=== PATIENT | male | born 1965 | race Caucasian/White ===

== ENCOUNTER 2016-09-14 13:18 | Emergency (ER) | payer SELFPAY ==
[~2016-09-14] VITALS: Ht 180.3 cm; Wt 87.0 kg
[~2016-09-14 13:18] MED LIST: CYCL-36 PO; GABA300C3 PO; PRED20 PO; VENTAER INH; ZITH250T PO
[2016-09-14 13:20] VITALS: BP 158/83; PULSE 86; RESP 16; TEMP 97.7; O2SAT 98
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
[2016-09-14] MEDS ORDERED: SODIUM CHLOR 0.9% 1000 ML INJ 1,000 ML IV SCH (14:20)
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
[2016-09-14] MEDS ORDERED: SODIUM CHLORIDE 0.9% FLUSH 10 ML FLUSH IV FLUSH PRN (14:30)
[2016-09-14] MEDS ORDERED: LIDOCAINE HCL 1% 50 ML VIAL INFIL ONE (14:30)
[2016-09-14] MEDS ORDERED: TETANUS/DIPHTHERIA TOXOID ADULT 0.5 ML VIAL IM ONE (14:30)
[2016-09-14 14:43] VITALS: BP 171/85; PULSE 75; RESP 20; TEMP 99; O2SAT 97
[2016-09-14 15:08] LABS: AUTOMATED NEUTROPHIL # 7.6 TH/MM3 (1.8-7.7); BASOPHIL % 0.5 % (0.0-2.0); EOSINOPHIL # 0.1 TH/MM3 (0-0.4); EOSINOPHIL % 0.5 % (0.0-4.0); HEMO FLAGS DIFF FINAL; LYMPH % 17.3 % (9.0-44.0); LYMPHOCYTE # 1.8 TH/MM3 (1.0-4.8); MEAN CELL VOLUME 93.9 FL (80.0-100.0); MEAN CORPUSCULAR HEMOGLOBIN 33.1 PG (27.0-34.0); MEAN CORPUSCULAR HGB CONC 35.3 % (32.0-36.0); MONO % 7.9 % (0.0-8.0); NEUT % 73.8 % (16.0-70.0); PLATELET COUNT 265 TH/MM3 (150-450); RED BLOOD COUNT 4.47 MIL/MM3 (4.50-5.90); WHITE BLOOD COUNT 10.3 TH/MM3 (4.0-11.0)
--- NOTE | 2016-09-14 15:16 | RADRPT ---
EXAM DATE/TIME: 09/14/2016 14:56 [facility] COMPARISON: No previous studies available for comparison. INDICATIONS : Syncope, fall on right side of face RADIATION DOSE: 56.33 CTDIvol (mGy) MEDICAL HISTORY : Cardiovascular disease. Compression fx in neck. SURGICAL HISTORY : None. Lumbar surgery ENCOUNTER: Initial ACUITY: 2 days PAIN SCALE: 8/10 LOCATION: Right eye TECHNIQUE: Multiple contiguous axial images were obtained of the head. Using automated exposure control and adj ustment of the mA and/or kV according to patient size, radiation dose was kept as low as reasonably a chievable to obtain optimal diagnostic quality images. FINDINGS: CEREBRUM: The ventricles are normal for age. No evidence of midline shift, mass lesion, hemorrhage or acute in farction. No extra-axial fluid collections are seen. POSTERIOR FOSSA: The cerebellum and brainstem are intact. The 4th ventricle is midline. The cerebellopontine angle i s unremarkable. EXTRACRANIAL: The visualized portion of the orbits is intact. SKULL: The calvaria is intact. No evidence of skull fracture. CONCLUSION: No acute intracranial disease. Jordan Blackwell MD on September 14, 2016 at 15:13 Board Certified Radiologist. This report was verified electronically.
--- NOTE | 2016-09-14 15:19 | RADRPT ---
EXAM DATE/TIME: 09/14/2016 15:00 [facility] COMPARISON: No previous studies available for comparison. INDICATIONS : Syncope. Fall, swelling right eye RADIATION DOSE: 21.96 CTDIvol (mGy) MEDICAL HISTORY : Cardiovascular disease. Compression fx in neck. SURGICAL HISTORY : None. ENCOUNTER: Initial ACUITY: 1 day PAIN SCORE: 3/10 LOCATION: Bilateral face TECHNIQUE: Volumetric scanning of the facial bones was performed. Using automated exposure control and adjustme nt of the mA and/or kV according to patient size, radiation dose was kept as low as reasonably achiev able to obtain optimal diagnostic quality images. FINDINGS: ORBITS: The orbital and infraorbital osseous structures are intact. The retroconal structures have a normal configuration. No radiopaque foreign bodies are seen. NASAL BONE: The nasal bone and maxillary spine are intact ZYGOMATIC ARCHES: Symmetric without evidence of fracture. SINUSES: The maxillary, ethmoid and frontal sinuses are intact. No air-fluid levels seen. NASAL CAVITY: The nasal septum is intact and midline. The lacrimal ducts are intact. SOFT TISSUES: No radiopaque foreign bodies seen. Right-sided facial soft-tissue swelling is seen. INTRACRANIAL: No intracranial air seen. CRIBIFORM PLATE: Grossly intact. CONCLUSION: 1. Right facial soft tissue swelling. 2. No facial fracture seen. Jordan Blackwell MD on September 14, 2016 at 15:17 Board Certified Radiologist. This report was verified electronically.
[2016-09-14 15:29] LABS: ANION GAP 8 MEQ/L (5-15); BICARBONATE 26.1 MEQ/L (21.0-32.0); BLOOD UREA NITROGEN 15 MG/DL (7-18); CHLORIDE 104 MEQ/L (98-107); GLOMERULAR FILTRATION RATE 93 ML/MIN (>89); POTASSIUM 3.7 MEQ/L (3.5-5.1); SODIUM (NA) 138 MEQ/L (136-145)
--- NOTE | 2016-09-14 15:59 | RADRPT ---
EXAM DATE/TIME: 09/14/2016 15:00 [facility] COMPARISON: No previous studies available for comparison. INDICATIONS : Syncope, fall. Prior history of cervical compression fracture RADIATION DOSE: 19.78 CTDIvol (mGy) MEDICAL HISTORY : Cardiovascular disease. Compression fx in neck. SURGICAL HISTORY : None. ENCOUNTER: Initial ACUITY: 1 day PAIN SCALE: 3/10 LOCATION: Bilateral neck region. TECHNIQUE: Volumetric scanning of the cervical spine was performed. Multiplanar reconstructions in the sagittal, coronal and oblique axial planes were performed. Using automated exposure control and adjustment o f the mA and/or kV according to patient size, radiation dose was kept as low as reasonably achievable to obtain optimal diagnostic quality images. FINDINGS: VERTEBRAE: Normal vertebral body height. Degenerative changes are seen at C4-5, C5-6 and C6-7 levels. ALIGNMENT: Minimal retrolisthesis C4 on C5 otherwise normal alignment. C2-C3: The bony spinal canal is normal in size. No evidence of disc bulge or herniation. The neural forami na are bilaterally patent. C3-C4: The bony spinal canal is normal in size. No evidence of disc bulge or herniation. The neural forami na are bilaterally patent. C4-C5: Small generalized posterior disc osteophyte complex without canal stenosis. Mild neural frontal narro wing bilaterally. C5-C6: The bony spinal canal is normal in size. No evidence of disc bulge or herniation. The neural forami na are bilaterally patent. C6-C7: Small generalized posterior disc osteophyte complex without canal stenosis. Mild neural frontal narro wing bilaterally. C7-T1: The bony spinal canal is normal in size. No evidence of disc bulge or herniation. The neural forami na are bilaterally patent. CONCLUSION: 1. Degenerative changes without fracture. 2. Degenerative retrolisthesis C4 and C5. 3. Emphysema and parenchymal densities in the left apex. Followup CT chest on a nonemergent basis in 6 months recommended for stability. Jordan Blackwell MD on September 14, 2016 at 15:51 Board Certified Radiologist. This report was verified electronically.
[2016-09-14] MEDS ORDERED: NAPR500T PO (16:17)
[2016-09-14] MEDS ORDERED: BACT800T5 PO (16:17)
[2016-09-14] MEDS ORDERED: CYCL1TAB29 PO (16:17)
--- NOTE | 2016-09-15 15:51 | EKG ---
Date Performed: 09/14/2016 Time Performed: 14:41:20 PTAGE: 51 years EKG: Sinus rhythm NORMAL ECG PREVIOUS TRACING : 08/14/2007 11.32 Compared to prior tracing no significant change DOCTOR: Baudilio Tejada Interpretating Date/Time 09/15/2016 15:48:40
== END 2016-09-14 16:39 | disposition home or self-care (01) ==
LOC: NEPD 13:18
DX: S01.311A Laceration without foreign body of right ear, initial encounter (principal); S00.11XA Contusion of right eyelid and periocular area, initial encounter; S00.12XA Contusion of left eyelid and periocular area, initial encounter; M54.2 Cervicalgia; F10.96 Alcohol use, unspecified with alcohol-induced persisting amnestic disorder; I10 Essential (primary) hypertension; F17.210 Nicotine dependence, cigarettes, uncomplicated
CPT/HCPCS: 12013; 70450; 70486; 72125; 80048; 80307; 85025; 90471; 90714; 93005; 96360; 99284; J7030; L0150

== ENCOUNTER 2016-09-23 16:01 | Emergency (ER) | payer SELFPAY ==
[~2016-09-23] VITALS: Ht 180.3 cm; Wt 84.0 kg
[~2016-09-23 16:01] MED LIST changes: +BACT800T5 PO; +CYCL1TAB29 PO; +NAPR500T PO
[2016-09-23 16:02] VITALS: BP 119/73; PULSE 95; RESP 12; TEMP 98.6; O2SAT 98
--- NOTE | 2016-09-23 16:07 | PD ---
Physical Exam Date Seen by Provider: September 23, 2016 Time Seen by Provider: 16:05 Narrative 51 YOWM C/O POSSIBLE WOUND INFECTION SUTURE RECHECK. ALSO L SHOULDER PAIN. NO F /C. ? DRAINAGE VVS WAITING FOR BED PLACEMENT Data Data Last Documented VS Vital Signs Date Time Temp Pulse Resp B/P Pulse Ox O2 Delivery O2 Flow Rate FiO2 09/23/16 16:02 98.6 95 12 119/73 98 MDM Medical Record Reviewed: Yes Supervised Visit with ALEXANDRA: Thad Thurman September 23, 2016 16:07
--- NOTE | 2016-09-23 16:27 | PD ---
HPI . Suture removal Chief Complaint: Wound/Suture/Staple Re-Check Time Seen by Provider: 16:26 Travel History International Travel<30 days: No Contact w/Intl Traveler<30days: No Traveled to known affect area: No History of Present Illness HPI 51-year-old male who was here on September 14 and received 23 sutures to his right ear here for suture removal. He tells me that he had a delay in starting his antibiotics therefore he is still currently on them. He denies any fever, chills or drainage from this area. He has no complaints PFSH Past Medical History Arthritis: No Asthma: Yes (HAD IT IN 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) Neurologic: No Psychiatric: No Reproductive: No Respiratory: Yes Migraines: No Myocardial Infarction: No Seizures: No Sleep Apnea: No Ulcer: No Past Surgical History Abdominal Surgery: No AICD: No Appendectomy: No Arteriovenous Shunt: No Cardiac Surgery: No Cholecystectomy: No Ear Surgery: No Endocrine Surgery: No Eye Surgery: No Genitourinary Surgery: No Gynecologic Surgery: No Insulin Pump: No Joint Replacement: No Oral Surgery: No Pacemaker: No Thoracic Surgery: No Other Surgery: Yes (previous hand surgery) Social History Alcohol Use: Yes (ON WEEKENDS, 4 PK, LAST DRINK YESTERDAY) Tobacco Use: Yes (1/2 PPD) Substance Use: No Allergies-Medications (Allergen,Severity, Reaction): Coded Allergies: Banana (Verified Allergy, Intermediate, stomach distress, 09/23/16) Dilaudid (Verified Allergy, Intermediate, nausea CAN TAKE MORPHINE, ) Reported Meds & Prescriptions Reported Meds & Active Scripts Active Flexeril (Cyclobenzaprine HCl) 10 Mg Tab 10 Mg PO TID 5 Days Naproxen 500 Mg Tab 500 Mg PO BID 7 Days Bactrim DS (Sulfamethoxazole-Trimethoprim) 800-160 Mg Tab 1 Tab PO BID Review of Systems General / Constitutional: No: Fever Eyes: No: Visual changes HENT: No: Headaches Cardiovascular: No: Chest Pain or Discomfort Respiratory: No: Shortness of Breath Gastrointestinal: No: Abdominal Pain Genitourinary: No: Dysuria Musculoskeletal: No: Pain Skin: Positive Other (sutures right ear), No Rash Neurologic: No: Weakness Psychiatric: No: Depression Endocrine: No: Polydipsia Hematologic/Lymphatic: No: Easy Bruising Physical Exam Narrative GENERAL: AAO x 3, no acute distress, Well-nourished, well-developed patient. SKIN: Warm and dry. No visible rashes or bruising. 23 sutures to right ear from behind ear through ear extending to right lateral face. clean without evidence of infection, no evidence wound dehiscence HEAD: Normocephalic and atraumatic. EYES: No scleral icterus. No injection or drainage. EOM intact, PERRLA ENT: No nasal drainage noted. Mucous membranes pink. Airway patent. NECK: Supple, trachea midline. No JVD. CARDIOVASCULAR: Regular rate and rhythm without murmurs, gallops, or rubs. RESPIRATORY: Breath sounds equal bilaterally. No accessory muscle use. No rhonchi or rales. GASTROINTESTINAL: Visual inspection normal. EXTREMITIES: No cyanosis or edema. BACK: Nontender without obvious deformity. No CVA tenderness. PSYCH: AAO x 3, normal affect. Data Data Last Documented VS Vital Signs Date Time Temp Pulse Resp B/P Pulse Ox O2 Delivery O2 Flow Rate FiO2 09/23/16 16:02 98.6 95 12 119/73 98 MDM Medical Decision Making Medical Screen Exam Complete: Yes Emergency Medical Condition: Yes Medical Record Reviewed: Yes Differential Diagnosis suture removal, less likely wound dehiscence, less likely cellulitis Narrative Course 51 yr old male here for suture removal. He has 23 sutures placed in his right ear. He had them placed on 09/14/16 Patient consented to removal. 23 sutures were removed. He tolerated without incident. Procedures Procedure Narrative right ear: area cleaned with alcohol 23 sutures removed patient tolerated without incident advised to keep area clean and f/u with PCP Diagnosis Primary Impression: Visit for suture removal Patient Instructions: General Instructions Additional Instructions: Please return to emergency department if your symptoms return or worsen. Follow up with your primary care provider. Med/Other Pt SpecificInfo: No Change to Meds Disposition: DISCHARGE HOME Condition: Stable Chrissy Gan September 23, 2016 16:27
== END 2016-09-23 17:09 | disposition home or self-care (01) ==
LOC: NEPK 16:01
DX: S01.311D Laceration without foreign body of right ear, subsequent encounter (principal); X58.XXXD Exposure to other specified factors, subsequent encounter; Z48.02 Encounter for removal of sutures
CPT/HCPCS: 99281

== ENCOUNTER 2016-12-02 13:14 | Emergency (ER) | payer SELFPAY ==
[~2016-12-02] VITALS: Ht 180.3 cm; Wt 84.0 kg
[~2016-12-02 13:14] MED LIST changes: -CYCL-36 PO; -GABA300C3 PO; -PRED20 PO; -VENTAER INH; -ZITH250T PO
[2016-12-02 13:16] VITALS: BP 145/89; PULSE 100; RESP 20; TEMP 98.2; O2SAT 97
[2016-12-02 13:55] VITALS: BP 128/78; PULSE 78; RESP 16; O2SAT 95
--- NOTE | 2016-12-02 14:01 | PD ---
HPI Chief Complaint: Pain: Acute or Chronic Time Seen by Provider: 14:00 Travel History International Travel<30 days: No Contact w/Intl Traveler<30days: No Traveled to known affect area: No History of Present Illness HPI 51-year-old male came to the emergency room with history of left-sided chest pain and shortness of breath. Patient has history of COPD and he is a smoker. He says he has had pneumonia in the past. The pain started yesterday and he has been unable to take a deep breath. Any movement makes the pain worse. He' s been clutching the left side of his chest saying that he cannot even lay down straight. No history of fever or chills. His oxygen saturation upon arrival was 95% on room air. He did not take his inhalers and nebulizer since he didn' t have any. [facility] Past Medical History Narrative Medical List of his past medical, surgical, social and family history is reviewed from the nursing note. 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) Neurologic: No Psychiatric: No Reproductive: No Respiratory: Yes Migraines: No Myocardial Infarction: No Pneumonia: Yes Seizures: No Sleep Apnea: No Ulcer: No Influenza Vaccination: No Past Surgical History Abdominal Surgery: No AICD: No Appendectomy: No Arteriovenous Shunt: No Cardiac Surgery: No Cholecystectomy: No Ear Surgery: No Endocrine Surgery: No Eye Surgery: No Genitourinary Surgery: No Gynecologic Surgery: No Insulin Pump: No Joint Replacement: No Neurologic Surgery: Yes (LUMBAR LAMNY 08/13) Oral Surgery: No Pacemaker: No Thoracic Surgery: No Other Surgery: Yes (previous hand surgery) Social History Alcohol Use: Yes (ON WEEKENDS, 4 PK, LAST DRINK YESTERDAY) Tobacco Use: Yes (1/2 PPD) Substance Use: No Allergies-Medications (Allergen,Severity, Reaction): Coded Allergies: Banana (Verified Allergy, Intermediate, stomach distress, 12/02/16) Comments List of his allergies reviewed from the nursing note. Reported Meds & Prescriptions Reported Meds & Active Scripts Active Ibuprofen 800 Mg Tab 800 Mg PO Q8H PRN Prednisone 20 Mg Tab 20 Mg PO BID 5 Days Ventolin Hfa 18 GM Inh (Albuterol Sulfate) 90 Mcg/Act Aer 2 Puff INH Q4-6H PRN Narrative Medication List of his home medications reviewed from the nursing note. Review of Systems Except as stated in HPI: all other systems reviewed are Neg Physical Exam Narrative GENERAL: Awake, alert, moderate distress SKIN: Focused skin assessment warm/dry. HEAD: Atraumatic. Normocephalic. EYES: Pupils equal and round. No scleral icterus. No injection or drainage. ENT: No nasal bleeding or discharge. Mucous membranes pink and moist. NECK: Trachea midline. No JVD. CARDIOVASCULAR: Regular rate and rhythm. No murmur appreciated. RESPIRATORY: No accessory muscle use. Coarse breath sounds with wheezing bilaterally. Tender on palpation on the left chest wall GASTROINTESTINAL: Abdomen soft, non-tender, nondistended. Hepatic and splenic margins not palpable. MUSCULOSKELETAL: No obvious deformities. No clubbing. No cyanosis. No edema. NEUROLOGICAL: Awake and alert. No obvious cranial nerve deficits. Motor grossly within normal limits. Normal speech. PSYCHIATRIC: Appropriate mood and affect; insight and judgment normal. Data Data Last Documented VS Vital Signs Date Time Temp Pulse Resp B/P Pulse Ox O2 Delivery O2 Flow Rate FiO2 12/02/16 13:55 78 16 128/78 95 Room Air 12/02/16 13:16 98.2 Orders Electrocardiogram (12/02/16 13:26) Complete Blood Count With Diff (12/02/16 14:04) Basic Metabolic Panel (Bmp) (12/02/16 14:04) Iv Access Insert/Monitor (12/02/16 14:04) Ecg Monitoring (12/02/16 14:04) Oximetry (12/02/16 14:04) Oxygen Administration (12/02/16 14:04) Chest, Single Ap (12/02/16 14:04) Sodium Chloride 0.9% Flush (Ns Flush) (12/02/16 14:15) Methylprednisolone So Succ Inj (Solumedr (12/02/16 14:15) Albuterol-Ipratropium Neb (Duoneb Neb) (12/02/16 14:15) Ketorolac Inj (Toradol Inj) (12/02/16 14:15) B-Type Natriuretic Peptide (12/02/16 15:07) Troponin I (12/02/16 15:07) Labs Laboratory Tests Test 12/02/16 14:20 White Blood Count 8.8 TH/MM3 Red Blood Count 4.80 MIL/MM3 Hemoglobin 15.4 GM/DL Hematocrit 45.9 % Mean Corpuscular Volume 95.6 FL Mean Corpuscular Hemoglobin 32.1 PG Mean Corpuscular Hemoglobin 33.5 % Concent Red Cell Distribution Width 15.0 % Platelet Count 325 TH/MM3 Mean Platelet Volume 6.9 FL Neutrophils (%) (Auto) 79.5 % Lymphocytes (%) (Auto) 11.1 % Monocytes (%) (Auto) 7.7 % Eosinophils (%) (Auto) 1.3 % Basophils (%) (Auto) 0.4 % Neutrophils # (Auto) 7.0 TH/MM3 Lymphocytes # (Auto) 1.0 TH/MM3 Monocytes # (Auto) 0.7 TH/MM3 Eosinophils # (Auto) 0.1 TH/MM3 Basophils # (Auto) 0.0 TH/MM3 CBC Comment DIFF FINAL Differential Comment Sodium Level 138 MEQ/L Potassium Level 4.2 MEQ/L Chloride Level 105 MEQ/L Carbon Dioxide Level 26.9 MEQ/L Anion Gap 6 MEQ/L Blood Urea Nitrogen 10 MG/DL Creatinine 1.02 MG/DL Estimat Glomerular Filtration 77 ML/MIN Rate Random Glucose 171 MG/DL Calcium Level 8.9 MG/DL Troponin I LESS THAN 0.02 NG/ML B-Type Natriuretic Peptide 23 PG/ML MDM Medical Decision Making Medical Screen Exam Complete: Yes Emergency Medical Condition: Yes Medical Record Reviewed: Yes Interpretation(s) Twelve-lead EKG was reviewed by me. Normal sinus rhythm, normal axis, nonspecific ST-T wave changes. Heart rate of 77bpm. Differential Diagnosis COPD/asthma exacerbation, ACS, non-STEMI, musculoskeletal Narrative Course 3:23 PM patient was given Toradol and he is getting 3 duo neb. He was also given IV Solu-Medrol bolus. Blood test results of back and within normal limit. Awaiting for the troponin and BNP that was added on. Chest x-rays within normal limit. If the troponin and BNP are within normal limit I will discharge him home. 4:08 PM troponin is within normal limit. I will discharge this patient home since his pain has been persistent for past at least 24 hours and seems more respiratory in nature. Procedures EKG Prior to Arrival: Yes Diagnosis Primary Impression: Acute exacerbation of chronic obstructive pulmonary disease (COPD) Additional Impressions: Chest pain, atypical Chest wall pain Needs smoking cessation education Referrals: Primary Care Physician Additional Instructions: Please return to the ER if the condition worsens or any other new concerns. Otherwise follow-up with your primary care. Take the medication as per the prescription direction. You should completely stop smoking in order to feel better and prevent progression of your lung disease. Med/Other Pt SpecificInfo: Prescription(s) given Scripts Ibuprofen 800 Mg Pte973 Mg PO Q8H PRN (PAIN SCALE 1 TO 6) #20 TAB Ref 0 Prov:Farzad Whitfield MD 12/02/16 Prednisone 20 Mg Tab20 Mg PO BID 5 Days Ref 0 Prov:Farzad Whitfiled MD 12/02/16 Albuterol 18 GM Inh (Ventolin Hfa 18 GM Inh)90 Mcg/Act Aer2 Puff INH Q4-6H PRN ( SHORTNESS OF BREATH) #1 INHALER Ref 0 Prov:Farzad Whitfield MD 12/02/16 Disposition: 01 DISCHARGE HOME Condition: Stable Farzad Whitfield MD Dec 02, 2016 14:01
[2016-12-02] MEDS ORDERED: methylPREDNISolone SOD SUCC 125 MG/2 ML VIAL IVP ONE (14:15)
[2016-12-02] MEDS ORDERED: KETOROLAC TROMETHAMINE 30 MG/ML (IVP) VIAL IV PUSH ONE (14:15)
[2016-12-02] MEDS ORDERED: SODIUM CHLORIDE 0.9% FLUSH 10 ML FLUSH IVF PRN (14:15)
[2016-12-02 14:32] LABS: BASOPHIL % 0.4 % (0.0-2.0); EOSINOPHIL # 0.1 TH/MM3 (0-0.4); EOSINOPHIL % 1.3 % (0.0-4.0); HEMATOCRIT 45.9 % (39.0-51.0); HEMO FLAGS DIFF FINAL; LYMPH % 11.1 % (9.0-44.0); MEAN CELL VOLUME 95.6 FL (80.0-100.0); MEAN CORPUSCULAR HEMOGLOBIN 32.1 PG (27.0-34.0); MEAN CORPUSCULAR HGB CONC 33.5 % (32.0-36.0); MONO % 7.7 % (0.0-8.0); NEUT % 79.5 % (16.0-70.0); PLATELET COUNT 325 TH/MM3 (150-450); WHITE BLOOD COUNT 8.8 TH/MM3 (4.0-11.0)
--- NOTE | 2016-12-02 14:34 | RADRPT ---
EXAM DATE/TIME: 12/02/2016 14:05 [facility] COMPARISON: No previous studies available for comparison. INDICATIONS : Chest pain and shortness of breath. MEDICAL HISTORY : Chronic obstructive pulmonary disease. Chronic bronchitis. Asthma. SURGICAL HISTORY : None. ENCOUNTER: Initial ACUITY: 2 days PAIN SCORE: 6/10 LOCATION: Left chest FINDINGS: A single view of the chest demonstrates the lungs to be symmetrically aerated without evidence of mas s, infiltrate or effusion. The cardiomediastinal contours are unremarkable. Osseous structures are intact. CONCLUSION: No acute disease. Yonas Alfaro MD FACR on December 02, 2016 at 14:30 Board Certified Radiologist. This report was verified electronically.
[2016-12-02 14:52] LABS: BICARBONATE 26.9 MEQ/L (21.0-32.0); POTASSIUM 4.2 MEQ/L (3.5-5.1)
[2016-12-02] MEDS: RESP: ALBUTEROL 2.5 MG/IPRATROPIUM 0.5 MG NEB (SCH) INH (15:00)
[2016-12-02] MEDS ORDERED: VENTAER INH (16:11)
[2016-12-02] MEDS ORDERED: PRED20 PO (16:11)
[2016-12-02] MEDS ORDERED: IBUP800T23 PO (16:28)
--- NOTE | 2016-12-03 19:12 | EKG ---
Date Performed: 12/02/2016 Time Performed: 13:29:20 PTAGE: 51 years EKG: Sinus rhythm NORMAL ECG Compared to PREVIOUS TRACING , no significant change. PREVIOUS TRACIN09/14/2016 14.41 DOCTOR: Nitish Kimbrough Interpretating Date/Time 12/03/2016 19:11:00
== END 2016-12-02 17:14 | disposition home or self-care (01) ==
LOC: NEPD 13:14
DX: J44.1 Chronic obstructive pulmonary disease with (acute) exacerbation (principal); R07.89 Other chest pain; R06.02 Shortness of breath; I10 Essential (primary) hypertension; F17.200 Nicotine dependence, unspecified, uncomplicated; Z87.09 Personal history of other diseases of the respiratory system; Z86.59 Personal history of other mental and behavioral disorders; Z86.79 Personal history of other diseases of the circulatory system; Z87.39 Personal history of other diseases of the musculoskeletal system and connective tissue
CPT/HCPCS: 71010; 80048; 83880; 84484; 85025; 93005; 94664; 96374; 96375; 99285; J1885; J2930

== ENCOUNTER 2017-05-26 20:22 | Emergency (ER) | payer OTHER ==
[~2017-05-26] VITALS: Ht 180.3 cm; Wt 85.0 kg
[~2017-05-26 20:22] MED LIST changes: -BACT800T5 PO; -CYCL1TAB29 PO; +IBUP1TAB7 PO; -NAPR500T PO; +PRED20 PO; +VENTAER INH
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
[2017-05-26] MEDS ORDERED: MORPHINE SULFATE 4 MG/ML INJ IM ONE (21:30)
[2017-05-26] MEDS ORDERED: TYLE325T PO (21:33)
== END 2017-05-26 21:55 | disposition left against medical advice (07) ==
LOC: NEPE 20:22
DX: M54.2 Cervicalgia (principal); M54.9 Dorsalgia, unspecified; I10 Essential (primary) hypertension; F17.200 Nicotine dependence, unspecified, uncomplicated; Z87.09 Personal history of other diseases of the respiratory system; Z86.59 Personal history of other mental and behavioral disorders; Z86.79 Personal history of other diseases of the circulatory system; Z87.39 Personal history of other diseases of the musculoskeletal system and connective tissue; V19.9XXA Pedal cyclist (driver) (passenger) injured in unspecified traffic accident, initial encounter; Z53.29 Procedure and treatment not carried out because of patient's decision for other reasons
CPT/HCPCS: 99281

== ENCOUNTER 2018-04-04 23:49 | Inpatient (IN) ==
[2018-04-05] MEDS ORDERED: Sod Chloride 0.9% Inj 1,000 ML IV.SIG SCH (00:15)
[2018-04-05 00:22] LABS: Baso # (Auto) 0.1 th/mm3 (0.0-0.2); Baso % (Auto) 0.8 % (0.0-2.0); Eos # (Auto) 0.3 th/mm3 (0.0-0.4); Hematocrit 45.3 % (39.0-51.0); Hemoglobin 15.6 gm/dL (13.0-17.0); Lymph # (Auto) 3.5 th/mm3 (1.0-4.8); Lymph % (Auto) 21.3 % (9.0-44.0); Mean Corpuscular HGB Conc 34.3 % (32.0-36.0); Mean Corpuscular Volume 93.3 fL (80.0-100.0); Mean Platelet Volume 7.2 fL (7.0-11.0); Neut # (Auto) 11.5 th/mm3 (1.8-7.7); Neut % (Auto) 69.9 % (16.0-70.0); Platelet Count 446 th/mm3 (150-450); Red Blood Count 4.85 mil/mm3 (4.50-5.90); Red Cell Distribution Width 14.9 % (11.6-17.2); White Blood Count 16.4 th/mm3 (4.0-11.0)
[2018-04-05 00:48] LABS: Alkaline Phosphatase 47 U/L (45-117); Total Protein 6.7 g/dL (6.4-8.2)
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
[2018-04-05 00:50] LABS: Alanine Aminotransferase 30 U/L (12-78); Albumin 3.1 g/dL (3.4-5.0); Anion Gap 9 meq/L (5-15); Aspartate Aminotransferase 42 U/L (15-37); Blood Urea Nitrogen 13 mg/dL (7-18); Calcium 8.2 mg/dL (8.5-10.1); Carbon Dioxide 23.5 meq/L (21.0-32.0); Chloride 106 meq/L (98-107); Glomerular Filtration Rate Greater Than 89 mL/min (>89); Glucose,Random 93 mg/dL (74-106); Sodium 138 meq/L (136-145)
[2018-04-05 00:51] LABS: Alcohol 9 mg/dL (0-5); Potassium 5.4 meq/L (3.5-5.1)
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
[2018-04-05 03:52] LABS: Activated Partial Thrombo Time 25.7 sec (23.4-31.7); Prothrombin Time 10.5 sec (9.8-11.6)
[2018-04-05] MEDS ORDERED: Pantoprazole Inj 40 MG Vial IV.PUSH SCH (06:00)
[2018-04-05] MEDS: Sod Chloride 0.9% Inj 1,000 ML IV.CONT SCH ×3 (06:02→16:13)
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
[2018-04-05] MEDS ORDERED: ARIPiprazole 5 MG Tablet PO SCH (09:00)
[2018-04-05] MEDS: Gabapentin 300 MG Capsule PO SCH ×3 (09:34→17:05)
[2018-04-05 10:13] LABS: Baso # (Auto) 0.1 th/mm3 (0.0-0.2); Baso % (Auto) 0.4 % (0.0-2.0); Eos % (Auto) 0.3 % (0.0-4.0); Hematocrit 40.1 % (39.0-51.0); Hemoglobin 13.6 gm/dL (13.0-17.0); Lymph # (Auto) 2.1 th/mm3 (1.0-4.8); Lymph % (Auto) 12.7 % (9.0-44.0); Mean Corpuscular HGB Conc 33.9 % (32.0-36.0); Mean Corpuscular Hemoglobin 31.6 pg (27.0-34.0); Mean Corpuscular Volume 93.2 fL (80.0-100.0); Mono # (Auto) 1.1 th/mm3 (0.0-0.9); Mono % (Auto) 6.7 % (0.0-8.0); Neut # (Auto) 13.2 th/mm3 (1.8-7.7); Neut % (Auto) 79.9 % (16.0-70.0); Platelet Count 380 th/mm3 (150-450); Red Blood Count 4.31 mil/mm3 (4.50-5.90); Red Cell Distribution Width 14.8 % (11.6-17.2); White Blood Count 16.5 th/mm3 (4.0-11.0)
[2018-04-05 10:42] LABS: Anion Gap 7 meq/L (5-15); Blood Urea Nitrogen 10 mg/dL (7-18); Calcium 7.7 mg/dL (8.5-10.1); Carbon Dioxide 23.6 meq/L (21.0-32.0); Chloride 108 meq/L (98-107); Glomerular Filtration Rate Greater Than 89 mL/min (>89); Glucose,Random 99 mg/dL (74-106); Potassium 4.3 meq/L (3.5-5.1); Sodium 139 meq/L (136-145)
[2018-04-05 21:00] VITALS: RESP 18
[2018-04-06 01:19] VITALS: BP 108/58; PULSE 77; TEMP 98.1; O2SAT 96
[2018-04-06] MEDS ORDERED: Chlorhexidine Gluconate 2% 1 Pack (2 Cloths) TOPICAL PRN (04:00)
[2018-04-06] MEDS ORDERED: Chlorhexidine Gluconate 2% 1 Pack (2 Cloths) TOPICAL SCH (04:00)
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
== END 2018-04-06 02:21 | disposition left against medical advice (07) ==
LOC: NEPE 23:49 → NEDA 04-05 02:06 → N05 04-05 13:30
PROVIDERS: ADMIT Surgery; ATTEND Surgery